=== PATIENT | female | born 1980 | race Caucasian/White ===

== ENCOUNTER → 2022-05-21 | Outpatient (CLI) | LOC: M CLY 10:19 | PROVIDERS: ATTEND Nurse Practitioner Family | DX: J30.1 Allergic rhinitis due to pollen (principal); J30.81 Allergic rhinitis due to animal (cat) (dog) hair and dander; J30.89 Other allergic rhinitis; H10.45 Other chronic allergic conjunctivitis; J45.20 Mild intermittent asthma, uncomplicated ==

== ENCOUNTER → 2023-06-04 | Outpatient (REF) | payer SELFPAY ==
[2023-06-04 12:04] LABS: COMPLEMENT C3 136.4 MG/DL (90.0-170.0); COMPLEMENT C4 29.7 MG/DL (12-36); IMMUNOGLOBULIN M 178.3 MG/DL (50-300)
[2023-06-04 12:08] LABS: IMMUNOGLOBULIN E 97.3 IU/ML (0-378)
== END ==
LOC: M LABDRAWC 11:04
PROVIDERS: ATTEND Allergy & Immunology
DX: J30.89 Other allergic rhinitis (principal); H10.45 Other chronic allergic conjunctivitis; J45.20 Mild intermittent asthma, uncomplicated; J30.1 Allergic rhinitis due to pollen

== ENCOUNTER → 2023-10-25 | Outpatient (REF) | payer BC ==
[2023-10-25 12:36] LABS: ALBUMIN 3.7 G/DL (3.2-5.2); ALKALINE PHOSPHATASE 86 U/L (46-116); ALT/SGPT 25 U/L (7.0-40); AST/SGOT 16 U/L (<34); BILIRUBIN,TOTAL 0.4 MG/DL (0.3-1.2); BLOOD UREA NITROGEN 13 MG/DL (9-23); CALCIUM LEVEL 9.5 MG/DL (8.5-10.1); CARBON DIOXIDE LEVEL 28 MMOL/L (20-31); CHLORIDE LEVEL 104 MMOL/L (98-107); CHOLESTEROL LEVEL 195 MG/DL (<200); CHOLESTEROL RISK RATIO 4.98 (<5); CREATININE FOR GFR 0.84 MG/DL (0.55-1.30); GLOMERULAR FILTRATION RATE > 60.0 (>58); GLUCOSE, FASTING 108 MG/DL (60-100); HDL CHOLESTEROL 39.1 MG/DL (>40); LDL CHOLESTEROL 133.5 MG/DL (<100); NON-HDL-C 155.9 MG/DL; POTASSIUM SERUM 4.2 MMOL/L (3.5-5.1); SODIUM LEVEL 138 MMOL/L (136-145); TOTAL PROTEIN 7.2 G/DL (5.7-8.2); TRIGLYCERIDES LEVEL 112 MG/DL (<150)
[2023-10-25 12:38] LABS: FREE T4 1.06 NG/DL (0.89-1.76); THYROID STIMULATING HORMONE 1.147 uIU/ML (0.55-4.78)
== END ==
LOC: EDBD → M SFHCCLAY 08:45 → MERGE 08:45
PROVIDERS: ATTEND Nurse Practitioner Family
DX: I10 Essential (primary) hypertension (principal)

== ENCOUNTER → 2024-08-11 | Outpatient (REF) | payer SELFPAY ==
[2024-08-11 17:37] LABS: COMPLEMENT C3 154.8 MG/DL (90.0-170.0); COMPLEMENT C4 30.1 MG/DL (12-36); IMMUNOGLOBULIN A 183.1 MG/DL (40-350); IMMUNOGLOBULIN G 1454 MG/DL (650-1600)
[2024-08-14 09:53] LABS: ALPHA 1 ANTITRYPSIN 143 mg/dL (83-199)
[2024-08-14 15:33] LABS: ALMOND IGE FOOD < 0.10 kU/L (<0.10); BERMUDA GRASS IGE 0.16 kU/L (<0.10); BIRCH IGE < 0.10 kU/L (<0.10); CASHEW NUT IGE FOOD < 0.10 kU/L (<0.10); CODFISH IGE FOOD < 0.10 kU/L (<0.10); COMMON RAGWEED SHORT IGE < 0.10 kU/L (<0.10); COWS MILK FOOD 0.16 kU/L (<0.10); E001-IGE CAT DANDER < 0.10 kU/L (<0.10); E003-IGE HORSE EPITHELIA/DAND < 0.10 kU/L (<0.10); E004-IGE COW DANDER < 0.10 kU/L (<0.10); E005-IGE DOG DANDER 0.41 kU/L (<0.10); EGG WHITE FOOD < 0.1 kU/L (<0.10); ELM IGE 0.15 kU/L (<0.10); HAZELNUT IGE FOOD 0.16 kU/L (<0.10); I006 IGE COCKROACH 0.45 kU/L (<0.10); IMMUNOGLOBULIN E FOR ALLERGENS 243 kU/L (<OR=114); M002 IGE CLADOSPORIUM HERBARU < 0.10 kU/L (<0.10); M003 IGE ASPERGILLUS FUMIGATU < 0.10 kU/L (<0.10); M006 IGE ALTERNIA ALTERNATA < 0.10 kU/L (<0.10); M1-PENICILLIUM NOTATUM < 0.10 kU/L (<0.10); MOUSE URINE IGE < 0.10 kU/L (<0.10); MUGWORT IGE < 0.10 kU/L (<0.10); OAK IGE 0.21 kU/L (<0.10); PEANUT IGE FOOD 0.22 kU/L (<0.10); SALMON IGE FOOD < 0.10 kU/L (<0.10); SCALLOP IGE FOOD < 0.10 kU/L (<0.10); SESAME SEED IGE FOOD 0.22 kU/L (<0.10); SHEEP SORREL IGE < 0.10 kU/L (<0.10); SHRIMP IGE FOOD < 0.10 kU/L (<0.10); SOYBEAN IGE FOOD < 0.10 kU/L (<0.10); SYCAMORE IGE 0.17 kU/L (<0.10); T001-IGE MAPLE BOX ELDER 0.11 kU/L (<0.10); T006-IGE MOUNTAIN CEDAR 0.15 kU/L (<0.10); T014 COTTONWOOD IGE < 0.10 kU/L (<0.10); TIMOTHY GRASS IGE 0.16 kU/L (<0.10); TUNA IGE FOOD < 0.10 kU/L (<0.10); WALNUT IGE FOOD < 0.10 kU/L (<0.10); WALNUT TREE IGE 0.14 kU/L (<0.10); WHITE ASH IGE 0.16 kU/L (<0.10); WHITE MULBERRY IGE < 0.10 kU/L (<0.10)
== END ==
LOC: M LABDRAWC 16:27
PROVIDERS: ATTEND Allergy & Immunology
DX: J30.1 Allergic rhinitis due to pollen (principal); J32.0 Chronic maxillary sinusitis; R05.3 Chronic cough

== ENCOUNTER → 2025-09-24 | Outpatient (REF) | payer OTHER ==
[2025-09-24 19:13] LABS: COMPLEMENT C4 31.4 MG/DL (12-36)
[2025-09-24 19:17] LABS: IMMUNOGLOBULIN E 120.9 IU/ML (0-378)
[2025-09-26 11:22] LABS: ALPHA 1 ANTITRYPSIN 133 mg/dL (83-199)
[2025-09-26 16:07] LABS: ALMOND IGE FOOD < 0.10 kU/L (<0.10); BERMUDA GRASS IGE < 0.10 kU/L (<0.10); BIRCH IGE < 0.10 kU/L (<0.10); BRAZIL NUT CLASS IGE <0.10 ABSENT (<0.10); BRAZIL NUT IGE < 0.10 kU/L (<0.10); CASHEW NUT IGE FOOD < 0.10 kU/L (<0.10); CODFISH IGE FOOD < 0.10 kU/L (<0.10); COMMON RAGWEED SHORT IGE 0.14 kU/L (<0.10); COWS MILK FOOD 0.28 kU/L (<0.10); D001 IGE D PTERONYSSINUS 19.80 kU/L (<0.10); D002-IGE D FARINAE 20.10 kU/L (<0.10); E001-IGE CAT DANDER < 0.10 kU/L (<0.10); E003-IGE HORSE EPITHELIA/DAND < 0.10 kU/L (<0.10); E004-IGE COW DANDER < 0.10 kU/L (<0.10); E005-IGE DOG DANDER 0.39 kU/L (<0.10); EGG WHITE FOOD < 0.1 kU/L (<0.10); ELM IGE < 0.10 kU/L (<0.10); HAZELNUT IGE FOOD < 0.10 kU/L (<0.10); I006 IGE COCKROACH 0.22 kU/L (<0.10); IMMUNOGLOBULIN E FOR ALLERGENS 190 kU/L (<OR=114); M006 IGE ALTERNIA ALTERNATA < 0.10 kU/L (<0.10); M1-PENICILLIUM NOTATUM < 0.10 kU/L (<0.10); MACADAMIA NUT CLASS IGE <0.10 ABSENT (<0.10); MOUSE URINE IGE < 0.10 kU/L (<0.10); MUGWORT IGE < 0.10 kU/L (<0.10); OAK IGE < 0.10 kU/L (<0.10); PEANUT IGE FOOD 0.11 kU/L (<0.10); ROUGH PIGWEED IGE < 0.10 kU/L (<0.10); SALMON IGE FOOD < 0.10 kU/L (<0.10); SCALLOP IGE FOOD < 0.10 kU/L (<0.10); SESAME SEED IGE FOOD < 0.10 kU/L (<0.10); SHEEP SORREL IGE < 0.10 kU/L (<0.10); SHRIMP IGE FOOD < 0.10 kU/L (<0.10); SOYBEAN IGE FOOD < 0.10 kU/L (<0.10); T001-IGE MAPLE BOX ELDER < 0.10 kU/L (<0.10); T006-IGE MOUNTAIN CEDAR < 0.10 kU/L (<0.10); T014 COTTONWOOD IGE 0.11 kU/L (<0.10); TIMOTHY GRASS IGE < 0.10 kU/L (<0.10); TUNA IGE FOOD < 0.10 kU/L (<0.10); WALNUT IGE FOOD < 0.10 kU/L (<0.10); WALNUT TREE IGE < 0.10 kU/L (<0.10); WHEAT IGE FOOD < 0.10 kU/L (<0.10); WHITE ASH IGE < 0.10 kU/L (<0.10); WHITE MULBERRY IGE < 0.10 kU/L (<0.10)
== END ==
LOC: M LABDRAWC 17:16
PROVIDERS: ATTEND Nurse Practitioner Family
DX: J30.1 Allergic rhinitis due to pollen (principal); J30.81 Allergic rhinitis due to animal (cat) (dog) hair and dander; J30.89 Other allergic rhinitis; H10.45 Other chronic allergic conjunctivitis; J45.20 Mild intermittent asthma, uncomplicated; J45.990 Exercise induced bronchospasm; R05.3 Chronic cough